=== PATIENT | female | born 1995 | race Caucasian/White ===

== ENCOUNTER → 2017-05-30 | Outpatient (CLI) | payer OTHER ==
--- NOTE | 2017-05-30 11:57 | REP ---
Clinical: Cervicalgia. Technique: AP, lateral, flexion/extension, bilateral oblique, and open-mouth views. Findings: Alignment and lordosis is maintained. There is no evidence for acute fracture / compression injury or subluxation. No significant degenerative changes are appreciated. Oblique views demonstrate patent neural foramen. Open mouth view demonstrates normal C1-C2 articulation and odontoid process. Impression: Normal cervical spine series. Signed by Ziyad Charlton MD 05/30/2017 11:49 A
--- NOTE | 2017-05-30 11:58 | REP ---
Clinical: Left shoulder pain . Technique: Internal rotation, external rotation, and Y view left shoulder . Findings: No acute fracture or dislocation. The acromioclavicular and glenohumeral joints are intact. No periarticular calcifications or degenerative changes are appreciated. Sub acromial space is normal. Surrounding soft tissues are unremarkable. Impression: Normal left shoulder radiographs. Signed by Ziyad Charlton MD 05/30/2017 11:50 A
== END ==
LOC: M WUC 11:03
PROVIDERS: ATTEND Physician Assistant
DX: M54.2 Cervicalgia (principal); M25.512 Pain in left shoulder

== ENCOUNTER → 2019-06-03 | Outpatient (CLI) | payer OTHER ==
--- NOTE | 2019-06-03 09:28 | REP ---
Clinical: acute bronchitis. Comparison: 08/30/2010. Technique: PA and lateral. Findings: The mediastinum and cardiac silhouette are normal. The lung ross are clear and without acute consolidation, effusion, or pneumothorax. The skeletal structures are intact and normal. Impression: 1. No acute cardiopulmonary process. Electronically Signed by Ziyad Charlton MD 06/03/2019 09:20 A
== END ==
LOC: M WUC 09:07
PROVIDERS: ATTEND Physician Assistant
DX: J20.9 Acute bronchitis, unspecified (principal)

== ENCOUNTER → 2020-01-10 | Outpatient (REF) | payer OTHER | LOC: M LAB REF 08:32 | PROVIDERS: ATTEND Physician Assistant | DX: R10.30 Lower abdominal pain, unspecified (principal) ==

== ENCOUNTER → 2020-01-17 | Outpatient (REF) | payer OTHER | LOC: M LAB REF 07:25 | PROVIDERS: ATTEND Physician Assistant Medical | DX: R10.30 Lower abdominal pain, unspecified (principal); R10.9 Unspecified abdominal pain; R31.9 Hematuria, unspecified ==

== ENCOUNTER 2020-09-27 08:11 | Emergency (ER) | payer OTHER ==
[~2020-09-27] VITALS: Ht 167.6 cm; Wt 88.5 kg
[~2020-09-27 08:11] MED LIST: CETI-24; L-NO1TBD6; ONDA4TAB6; ROPI0.5T3; TRAZ-252
[2020-09-27 08:42] LABS: BASO % 0.5 % (0.0-1.0); EOS # 0.1 10^3/uL (0.0-0.5); EOS % 1.6 % (0.0-3.0); HEMATOCRIT 36.9 % (36.0-47.0); HEMOGLOBIN 12.1 g/dl (12.0-15.5); LYMPH # 2.1 10^3/uL (1.5-5.0); LYMPH % 28.6 % (24.0-44.0); MEAN CORPUSCULAR HEMOGLOBIN 29.7 pg (27.0-33.0); MEAN CORPUSCULAR HGB CONC 32.8 g/dl (32.0-36.5); MEAN CORPUSCULAR VOLUME 90.4 fl (80.0-96.0); MONO # 0.6 10^3/uL (0.0-0.8); MONO % 7.9 % (2.0-8.0); NEUTROPHILS # 4.5 10^3/uL (1.5-8.5); PLATELET COUNT, AUTOMATED 435 10^3/uL (150-450); RED BLOOD COUNT 4.08 10^6/uL (4.00-5.40); WHITE BLOOD COUNT 7.4 10^3/uL (4.0-10.0)
[2020-09-27] MEDS ORDERED: KETOROLAC 30 MG/ML 1ML VIAL IV ONE (08:50)
[2020-09-27] MEDS ORDERED: NS 1,000 ML IV ONE (08:50)
[2020-09-27] MEDS ORDERED: ONDANSETRON 4MG/2ML VIAL IV ONE (09:05)
[2020-09-27 09:18] LABS: ALBUMIN 3.4 GM/DL (3.2-5.2); ALT/SGPT 27 U/L (12-78); BILIRUBIN,DIRECT 0.1 MG/DL (0.0-0.2); BILIRUBIN,TOTAL 0.3 MG/DL (0.2-1.0); BLOOD UREA NITROGEN 10 MG/DL (7-18); CALCIUM LEVEL 8.9 MG/DL (8.5-10.1); CARBON DIOXIDE LEVEL 24 MEQ/L (21-32); CHLORIDE LEVEL 108 MEQ/L (98-107); CREATININE FOR GFR 0.74 MG/DL (0.55-1.30); GLOMERULAR FILTRATION RATE > 60.0 (>60); GLUCOSE, FASTING 104 MG/DL (70-100); LIPASE 80 U/L (73-393); SODIUM LEVEL 140 MEQ/L (136-145); TOTAL PROTEIN 7.2 GM/DL (6.4-8.2)
--- NOTE | 2020-09-27 09:41 | REP ---
INDICATION: RUQ pain COMPARISON: None. TECHNIQUE: Real time bauman scale ultrasound examination using curved array transducer. FINDINGS: Liver demonstrates mild fatty infiltration without focal hepatic lesion identified. Pancreas is incompletely evaluated due to interposed bowel gas. The gallbladder is normal and without gallstones, wall thickening, or pericholecystic fluid. No biliary ductal dilatation is appreciated and the common bile duct measures 2.7 mm diameter. Right kidney is normal in reniform shape and measures 11.3 x 6.0 x 5.1 cm with suggestions for pelviectasis versus mild hydronephrosis. No ascites in the visualized right upper quadrant. IMPRESSION: Hepatosteatosis. Cannot exclude very mild hydronephrosis. <Electronically signed by Ziyad Charlton > 09/27/20 0936
--- NOTE | 2020-09-27 09:45 | REP ---
INDICATION: r flank pain, ro stone, hydronephrosis on US COMPARISON: None TECHNIQUE: Axial noncontrast images from the lung bases to the pubic symphysis with coronal and sagittal reformations. This CT examination was performed using the following dose reduction techniques: Automated exposure control, adjustment of mA and/or kv according to the patient's size, and use of iterative reconstruction technique. FINDINGS: Mild right-sided obstructive uropathy with mild hydronephrosis and perinephric stranding secondary to a 2 mm calculus approaching the ureterovesical junction (series 201 images 135-136). Punctate bilateral nonobstructing calculi are noted. Hepatosteatosis. Spleen, pancreas, gallbladder, bilateral adrenal glands are normal for noncontrast evaluation. The enteric system is without obstruction or acute inflammatory process. Pelvis demonstrates collapsed bladder and age-appropriate uterus/adnexa. No ascites. No free air. No adenopathy. Abdominal aorta without aneurysm. Musculoskeletal structures are intact. Lung bases are clear. IMPRESSION: Mild acute right-sided obstructive uropathy with a 2 mm calculus in the distal right ureter approaching the ureterovesical junction. Very small bilateral nonobstructing renal calculi also noted. <Electronically signed by Ziyad Charlton > 09/27/20 0918
[2020-09-27] MEDS ORDERED: MACR100C43 PO (11:10)
[2020-09-27] MEDS ORDERED: FLOM0.4C39 PO (11:11)
[2020-09-27 11:20] VITALS: BP 109/58
== END 2020-09-27 11:22 | disposition home or self-care (01) ==
LOC: M ED 08:11
DX: N30.01 Acute cystitis with hematuria (principal); N20.0 Calculus of kidney; K76.0 Fatty (change of) liver, not elsewhere classified; N92.6 Irregular menstruation, unspecified; G25.81 Restless legs syndrome; Z79.3 Long term (current) use of hormonal contraceptives; Z79.899 Other long term (current) drug therapy; Z88.0 Allergy status to penicillin
CPT/HCPCS: 74176; 76705; 80048; 80076; 81001; 83690; 84702; 85025; 87088; 96361; 96374; 96375; 99284; J1885; J2405

== ENCOUNTER 2020-10-01 11:55 | Day surgery (SDC) | payer OTHER ==
[~2020-10-01] VITALS: Ht 167.6 cm; Wt 88.4 kg
[~2020-10-01 11:55] MED LIST changes: +FLOM0.4C39 PO; +LIDOCAINE 1% MDV 20ML VIAL SQ PRN; +LR 1,000 ML IV ONE; +MACR100C43 PO
[2020-10-01] MEDS ORDERED: CETI5SOL3 PO (12:21)
[2020-10-01] MEDS ORDERED: LIDOCAINE 2% 100MG/5ML SDV (FOR ANES.) As Ordered ONE (14:33)
[2020-10-01] MEDS ORDERED: dexameTHASONE 4 MG/ML 1ML VIAL (J1100 PER 1MG) As Ordered ONE ×2 (14:33→15:14)
[2020-10-01] MEDS ORDERED: ONDANSETRON 4MG/2ML VIAL As Ordered ONE (14:33)
[2020-10-01] MEDS ORDERED: MIDAZOLAM INJ 2MG/2ML VIAL (J2250 PER 1MG) As Ordered ONE (14:33)
[2020-10-01] MEDS ORDERED: propofoL 200 MG/20 ML VIAL As Ordered ONE (14:33)
[2020-10-01] MEDS ORDERED: ROCURONIUM BROMIDE 50 MG/5 ML VIAL As Ordered ONE ×2 (14:33→15:36)
[2020-10-01] MEDS ORDERED: fentaNYL 100 MCG/2 ML INJECTION (J3010) As Ordered ONE ×2 (14:34→15:29)
[2020-10-01] MEDS ORDERED: ACETAMINOPHEN 1000MG 100ML IV BTL (OFIRMEV) (J0131 PER 10MG) As Ordered ONE (15:14)
[2020-10-01] MEDS ORDERED: SUGAMMADEX SODIUM 500 MG/5 ML VIAL (BRIDION) As Ordered ONE (15:43)
[2020-10-01] MEDS ORDERED: ONDANSETRON 4MG/2ML VIAL IV PRN (16:15)
[2020-10-01] MEDS ORDERED: LR 1,000 ML IV SCH ×2 (16:15)
[2020-10-01] MEDS ORDERED: IBUPROFEN 600MG TAB PO PRN (16:15)
[2020-10-01] MEDS ORDERED: NORCO, ANEXSIA 5/325MG TABLET (HYDROcodone/ACETAMINOPHEN) PO PRN (16:15)
[2020-10-01] MEDS: fentaNYL 100 MCG/2 ML INJECTION (J3010) IV PRN ×4 (16:17→16:32)
[2020-10-01] MEDS: PERCOCET 5MG/325MG TAB PO PRN ×2 (16:17→17:03)
[2020-10-01 17:55] VITALS: BP 121/63
--- NOTE | 2020-10-01 20:41 | RO ---
OPERATIVE NOTE DATE OF OPERATION: 10/01/2020 PREOPERATIVE DIAGNOSIS/INDICATION FOR SURGERY: Pain. POSTOPERATIVE DIAGNOSIS: Pain with focal area of endometriosis in the pelvis. PROCEDURE: Laparoscopy with laser treatment to the inflamed endometriosis lesions as documented in the operative photos. SURGEON: Carolynn Palma MD SONOGRAPHY TECHNOLOGIST: None. ANESTHESIA: General tracheal anesthesia. BRIEF DESCRIPTION OF PROCEDURE AND FINDINGS: Sharmin was brought to the operating room where sufficient general endotracheal anesthesia was induced. She was prepped and draped and positioned in the usual sterile fashion. The uterine manipulator placed after the uterus had been sounded to 8 and the bladder emptied. Attention was then turned to the abdomen. A transverse semilunar incision was made below the umbilicus. Sharp and blunt dissection was continued through the subcutaneous tissue to the level of the rectus fascia, just transversely incised and the peritoneal cavity entered under direct visualization. 0 Vicryl sutures were placed into the fascia and the Harpreet cannula was placed directly into the peritoneum in open laparoscopic technique and then secured in place with a 0 Vicryl sutures and Co2 insufflation was then begun. After adequate Co2 insufflation, the peritoneal cavity was visualized. There were normal shiny peritoneal surfaces throughout. There is no excrescence, ascites, nor exudate and the anterior aspect of the uterus and the lateral aspects of the uterus and the adnexa were normal. The posterior uterus was also normal. The intestines, the upper abdomen all normal. In the cul-de-sac, localized to this area and not in the ovarian fossa, there were a cluster of inflamed lesions with the appearance of endometriosis. These lesions were at the distal length reach of our tools and decision was made not to biopsy them because of the location especially since the laser was readily able to reach and with its controlled depth penetration, there was enough thickness to the tissues that we knew that we could treat them with the laser without putting significant bowel risk and of course did not want to dig into the cul-de-sac and find our way to injury any other organs. So we did use the laser to treat each of these lesions. All of them were treated. There were no other lesions that were not readily accessible and treatable. There were no other visible lesions. This was all photographed for the patient's hospital chart and the procedure was then ended with the Co2 allowed to escape the abdomen. The instruments were removed. The fascial wound was closed with 0 Vicryl retention sutures and then the skin was closed with 3-0 Vicryl in a subcuticular stitch with good approximation and hemostasis at both layers. Of course the uterine manipulator was removed, etc and a dry sterile dressing applied, not in that order, dry sterile dressing first and then the vaginal instruments also removed and the procedure ended. Estimated blood loss for the procedure is about 2 ml. Fluid replaced Crystalloid. Complications: None. Condition and disposition: Sharmin tolerated the procedure well and was recovering in the recovery room in good condition.
== END 2020-10-01 17:55 | disposition home or self-care (01) ==
LOC: M SDC 11:55
PROVIDERS: ATTEND Obstetrics & Gynecology
DX: N80.3 Endometriosis of pelvic peritoneum (principal); M54.9 Dorsalgia, unspecified; R51.9 Headache, unspecified; E66.9 Obesity, unspecified; Z68.31 Body mass index [BMI] 31.0-31.9, adult; Z88.0 Allergy status to penicillin; Z79.899 Other long term (current) drug therapy; Z79.3 Long term (current) use of hormonal contraceptives; Z79.2 Long term (current) use of antibiotics
CPT/HCPCS: 58662; 81025; J0131; J1100; J2250; J2405; J3010

== ENCOUNTER → 2021-01-07 | Outpatient (CLI) | payer OTHER ==
[~2021-01-07] MED LIST changes: +CETI5SOL3 PO; -LIDOCAINE 1% MDV 20ML VIAL SQ PRN; -LR 1,000 ML IV ONE
--- NOTE | 2021-01-07 10:52 | REPVR ---
PROCEDURE INFORMATION: Exam: CT Maxillofacial Without Contrast, Sinus Exam date and time: 01/07/2021 10:03 AM Age: 25 years old Clinical indication: Other: Sinus pain; Additional info: Chronic sinusitis unspecified TECHNIQUE: Imaging protocol: CT Maxillofacial without contrast. Focus on the sinuses. Radiation optimization: All CT scans at this facility use at least one of these dose optimization techniques: automated exposure control; mA and/or kV adjustment per patient size (includes targeted exams where dose is matched to clinical indication); or iterative reconstruction. COMPARISON: No relevant prior studies available. FINDINGS: Frontal sinuses: No significant mucosal disease. No air-fluid levels. Nasofrontal recesses are clear. Ethmoid air cells: No significant mucosal thickening. No air-fluid levels. Sphenoid sinuses: No significant mucosal disease. No air-fluid levels. Spheno-ethmoidal recesses are clear. Maxillary sinuses: Small amount bilateral mucosal thickening. No air-fluid levels. Ostiomeatal units are patent. Nasal cavity/Septum: Unremarkable. Orbital cavity: Orbits are normal. Globes are unremarkable. Bones/joints: Unremarkable. Soft tissues: Unremarkable. Auditory system: Mastoid air cells and middle ear cavities are well developed and well aerated. IMPRESSION: Small amount of mucosal thickening in maxillary sinuses otherwise clear paranasal sinuses. No air-fluid levels or acute sinusitis. Electronically signed by: Keyonna Coy On 01/07/2021 10:52:17 AM
== END ==
LOC: M RAD 09:50
PROVIDERS: ATTEND Otolaryngology
DX: J32.9 Chronic sinusitis, unspecified (principal)

== ENCOUNTER 2022-08-22 03:53 | Emergency (ER) | payer OTHER ==
[~2022-08-22] VITALS: Ht 167.6 cm; Wt 97.7 kg
[2022-08-22 04:43] LABS: AMORPHOUS SEDIMENT SMALL (NEGATIVE); APPEARANCE, URINE CLOUDY (CLEAR); BACTERIA, URINE AUTO NEGATIVE (NEGATIVE); BILIRUBIN, URINE AUTO NEGATIVE (NEGATIVE); BLOOD, URINE BLOOD 3+ (NEGATIVE); COLOR, URINE YELLOW (YELLOW); GLUCOSE, URINE (UA) AUTO NEGATIVE (NEGATIVE); KETONE, URINE AUTO NEGATIVE (NEGATIVE); LEUKOCYTE ESTERASE, URINE AUTO NEGATIVE (NEGATIVE); MUCUS, URINE SMALL (NEGATIVE); NITRITE, URINE AUTO NEGATIVE (NEGATIVE); PROTEIN, URINE AUTO 2+ mg/dL (NEGATIVE); RBC, URINE AUTO TNTC /HPF (0-3); SPECIFIC GRAVITY URINE AUTO 1.026 (1.002-1.035); SQUAMOUS EPITHELIAL CELL UR AU 4 /HPF (0-6); UROBILINOGEN, URINE AUTO 0.2 mg/dL (0.0-2.0); WBC, URINE AUTO 0 /HPF (0-3)
[2022-08-22] MEDS ORDERED: ONDANSETRON 4MG 2ML VIAL IV ONE (06:35)
[2022-08-22] MEDS ORDERED: NS 1,000 ML IV ONE (06:35)
[2022-08-22] MEDS ORDERED: KETOROLAC 30 MG/ML 1ML VIAL IV ONE ×2 (06:35→08:40)
[2022-08-22 07:14] LABS: BASO # 0.1 10^3/uL (0.0-0.2); BASO % 0.4 % (0.0-1.0); EOS % 0.1 % (0.0-3.0); HEMATOCRIT 38.9 % (36.0-47.0); LYMPH # 1.3 10^3/uL (1.5-5.0); LYMPH % 8.9 % (24.0-44.0); MEAN CORPUSCULAR HEMOGLOBIN 30.3 pg (27.0-33.0); MEAN CORPUSCULAR HGB CONC 33.4 g/dl (32.0-36.5); MEAN CORPUSCULAR VOLUME 90.7 fl (80.0-96.0); MONO # 0.5 10^3/uL (0.0-0.8); MONO % 3.6 % (2.0-8.0); NEUTROPHILS # 12.3 10^3/uL (1.5-8.5); NEUTROPHILS % 86.5 % (36.0-66.0); PLATELET COUNT, AUTOMATED 457 10^3/uL (150-450); RED BLOOD COUNT 4.29 10^6/uL (4.00-5.40); WHITE BLOOD COUNT 14.2 10^3/uL (4.0-10.0)
[2022-08-22 07:34] LABS: LIPASE 28 U/L (12-53)
[2022-08-22 07:38] LABS: HCG, SERUM QUALITATIVE NEGATIVE (NEGATIVE)
[2022-08-22 07:39] LABS: ALBUMIN 4.1 G/DL (3.2-5.2); ALKALINE PHOSPHATASE 85 U/L (46-116); ALT/SGPT 52 U/L (7.0-40); AST/SGOT 29 U/L (<34); BILIRUBIN,DIRECT 0.1 MG/DL (<0.4); BILIRUBIN,TOTAL 0.5 MG/DL (0.3-1.2); TOTAL PROTEIN 7.4 G/DL (5.7-8.2)
[2022-08-22] MEDS ORDERED: TAMSULOSIN 0.4 MG CAP PO ONE (08:45)
[2022-08-22] MEDS ORDERED: FLOM0.4C39 PO (09:23)
[2022-08-22] MEDS ORDERED: KETO10TAB PO (09:23)
[2022-08-22 09:50] VITALS: BP 111/66
[2022-08-22 10:09] LABS: MONO REFLEX EBV COMP NEGATIVE (NEGATIVE)
[2022-08-23 16:09] LABS: EBV VIRAL CAPSID AG IgM <36.0 U/mL (0.0-35.9)
== END 2022-08-22 09:50 | disposition home or self-care (01) ==
LOC: M ED 03:53
DX: N23 Unspecified renal colic (principal); N20.2 Calculus of kidney with calculus of ureter; R10.9 Unspecified abdominal pain; R11.2 Nausea with vomiting, unspecified; G47.00 Insomnia, unspecified
CPT/HCPCS: 74176; 80047; 80076; 81001; 83690; 84703; 85025; 86308; 86664; 86665; 96374; 96375; 96376; 99284; J1885; J2405

== ENCOUNTER → 2022-08-29 | Outpatient (REF) | payer OTHER ==
[~2022-08-29] MED LIST changes: +KETO10TAB PO
[2022-08-29 14:44] LABS: APPEARANCE, URINE HAZY (CLEAR); BACTERIA, URINE AUTO NEGATIVE (NEGATIVE); BILIRUBIN, URINE AUTO NEGATIVE (NEGATIVE); BLOOD, URINE BLOOD NEGATIVE (NEGATIVE); COLOR, URINE YELLOW (YELLOW); GLUCOSE, URINE (UA) AUTO NEGATIVE (NEGATIVE); KETONE, URINE AUTO NEGATIVE (NEGATIVE); LEUKOCYTE ESTERASE, URINE AUTO TRACE (NEGATIVE); MUCUS, URINE SMALL (NEGATIVE); NITRITE, URINE AUTO NEGATIVE (NEGATIVE); PROTEIN, URINE AUTO NEGATIVE (NEGATIVE); RBC, URINE AUTO 1 /HPF (0-3); SPECIFIC GRAVITY URINE AUTO 1.018 (1.002-1.035); SQUAMOUS EPITHELIAL CELL UR AU 7 /HPF (0-6); UROBILINOGEN, URINE AUTO 0.2 mg/dL (0.0-2.0); WBC, URINE AUTO 4 /HPF (0-3)
== END ==
LOC: M SMT 13:13
PROVIDERS: ATTEND Urology
DX: N20.0 Calculus of kidney (principal)

== ENCOUNTER → 2022-09-13 | Outpatient (REF) | payer OTHER ==
[2022-09-13 14:03] LABS: APPEARANCE, URINE TURBID (CLEAR); BACTERIA, URINE AUTO NEGATIVE (NEGATIVE); BILIRUBIN, URINE AUTO NEGATIVE (NEGATIVE); BLOOD, URINE BLOOD NEGATIVE (NEGATIVE); COLOR, URINE YELLOW (YELLOW); GLUCOSE, URINE (UA) AUTO NEGATIVE (NEGATIVE); KETONE, URINE AUTO NEGATIVE (NEGATIVE); LEUKOCYTE ESTERASE, URINE AUTO 3+ (NEGATIVE); MUCUS, URINE MODERATE (NEGATIVE); NITRITE, URINE AUTO NEGATIVE (NEGATIVE); PROTEIN, URINE AUTO NEGATIVE (NEGATIVE); RBC, URINE AUTO 0 /HPF (0-3); SPECIFIC GRAVITY URINE AUTO 1.024 (1.002-1.035); SQUAMOUS EPITHELIAL CELL UR AU 36 /HPF (0-6); UROBILINOGEN, URINE AUTO 0.2 mg/dL (0.0-2.0); WBC, URINE AUTO 6 /HPF (0-3)
== END ==
LOC: M SMT 12:50
PROVIDERS: ATTEND Urology
DX: N20.0 Calculus of kidney (principal)

== ENCOUNTER 2025-01-03 01:46 | Emergency (ER) | payer SELFPAY ==
[~2025-01-03] VITALS: Ht 167.6 cm; Wt 73.2 kg
[~2025-01-03 01:46] MED LIST changes: -FLOM0.4C39 PO; +ONDA-282; -ONDA4TAB6; -ROPI0.5T3; +ROPI0.5T33; +TAMS-18 PO
[2025-01-03] MEDS: LIDOCAINE 2% W/EPINEPHrine 20 ML VIAL **PRES FREE INJ ONE (06:35)
[2025-01-03] MEDS ORDERED: HYDR-3713 PO (07:10)
[2025-01-03] MEDS ORDERED: DOXY-442 PO (07:10)
[2025-01-03 07:23] VITALS: BP 126/83; TEMP 97.9; O2SAT 99
== END 2025-01-03 07:32 | disposition home or self-care (01) ==
LOC: M ED 01:46
DX: L02.416 Cutaneous abscess of left lower limb (principal); Z88.1 Allergy status to other antibiotic agents; Z79.1 Long term (current) use of non-steroidal anti-inflammatories (NSAID); Z79.2 Long term (current) use of antibiotics; Z79.899 Other long term (current) drug therapy